=== PATIENT | male | born 1955 | race Caucasian/White ===

== ENCOUNTER 2023-05-04 08:04 | Day surgery (SDC) | payer MEDICARE ==
[~2023-05-04] VITALS: Ht 167.6 cm; Wt 73.0 kg
[~2023-05-04 08:04] MED LIST: ASPIRIN/SOD BICARB/CITRIC ACID 324MG TAB EFF ONE; NICARDIPINE 100MCG/ML 10ML VIAL (CATH LAB) IV ONE; NITROGLYCERIN 50MCG/ML 10ML VIAL (CATH LAB) IV ONE
[2023-05-04] MEDS ORDERED: GABA-532 PO (11:13)
[2023-05-04] MEDS ORDERED: METO-396 PO (11:13)
[2023-05-04] MEDS ORDERED: ASPI-1497 PO (11:13)
[2023-05-04] MEDS ORDERED: LOSA50TA41 PO (11:13)
[2023-05-04] MEDS ORDERED: CLOP-31 PO (11:13)
[2023-05-04] MEDS ORDERED: METF-414 PO (11:21)
[2023-05-04] MEDS ORDERED: MAGN84TA4 PO (11:21)
[2023-05-04] MEDS ORDERED: ATOR80TA PO (11:21)
[2023-05-04] MEDS ORDERED: NITR0.4T SL (11:21)
[2023-05-04] MEDS ORDERED: LIDOCAINE HCL/PF 1% 10 MG/ML 5ML VIAL ONE (11:23)
[2023-05-04] MEDS ORDERED: HEPARIN 1000 UNITS/ML 10ML ONE (11:23)
[2023-05-04] MEDS ORDERED: IODIXANOL 320MG/ML 100 ML BOTTLE IV ONE (11:23)
[2023-05-04] MEDS ORDERED: MIDAZOLAM HCL 2 MG/2 ML VIAL ONE (11:23)
[2023-05-04] MEDS ORDERED: FENTANYL CITRATE/PF 50MCG/ML 2ML VIAL ONE (11:23)
[2023-05-04] MEDS ORDERED: LIDOCAINE HCL 1% 20ML VIAL (Pyxis) INJ ONE (11:27)
[2023-05-04] MEDS ORDERED: MORPHINE SULFATE 2 MG/ML CPJ (NOT FOR IM USE) IV PRN (12:15)
[2023-05-04] MEDS ORDERED: ONDANSETRON HCL 4MG/2ML INJ IV PRN (12:15)
[2023-05-04] MEDS ORDERED: ACETAMINOPHEN 325MG TABLET PO PRN (12:15)
[2023-05-04] MEDS ORDERED: HYDRALAZINE HCL 25MG TABLET PO NR (16:15)
[2023-05-04] MEDS ORDERED: LOSARTAN POTASSIUM 50 MG TABLET PO NR (16:15)
== END 2023-05-04 19:30 | disposition home or self-care (01) ==
LOC: CCL 08:04
PROVIDERS: ATTEND Specialist
DX: I25.10 Atherosclerotic heart disease of native coronary artery without angina pectoris (principal); E11.9 Type 2 diabetes mellitus without complications; I25.2 Old myocardial infarction; I10 Essential (primary) hypertension; E78.5 Hyperlipidemia, unspecified; Z79.82 Long term (current) use of aspirin; Z79.84 Long term (current) use of oral hypoglycemic drugs; Z79.899 Other long term (current) drug therapy; Z98.890 Other specified postprocedural states; Z95.1 Presence of aortocoronary bypass graft
CPT/HCPCS: 93459; J3010; J8499 ×2; Q9967; J1644 ×2; J3490 ×4; J2250; Z7610 ×7; 93458